=== PATIENT | female | born 1940 | race Caucasian/White ===

== ENCOUNTER 2024-10-12 02:08 | Observation (INO) ==
--- NOTE | 2024-10-12 02:45 | Emergency Department Note ---
Impression & Plan Syncope, Midsternal chest pain, Vomiting Admit to the [facility] ED Provider Note NAME: JANE HUSSEIN AGE: 84 SEX: Female INFORMANT: Patient ED PROVIDER(S): Elmira Shin DO CHIEF COMPLAINT: Syncope, vomiting and chest pressure PLAN: Disposition: Admit to the [facility] MEDICAL DECISION MAKING: this is an 84-year-old female patient who awoke from a nap this evening feeling very nauseated. Enroute to the restroom, she had a syncopal event falling into a closet. She began to vomit there. Patient's found her unresponsive in the closet and called EMS. History from EMS and the patient's daughter was that she had been unresponsive for a prolonged period of time. Upon regaining consciousness, the patient complained of midsternal chest pain. On presentation to the emergency department, the patient describes midsternal chest discomfort and feeling tense, stiff and anxious. Laboratory studies revealed no leukocytosis or anemia. Glucose was normal at 114. Troponin was negative. Lipase was normal. The patient explains that she has been having intermittent episodes of epigastric abdominal pain for some time now for which she is being worked up for. Urinalysis was unremarkable. Patient denies any associated shortness of breath but states she has been having intermittent episodes of dizziness which have been diagnosed as vertigo. Patient went for CT scan of the abdomen/pelvis and chest because of the ongoing complaint of chest discomfort and for the original episode of syncope. There was no evidence of PE or trauma to the chest wall. The CT scan of the abdomen/pelvis was normal. I remain concerned about the patient's prolonged unresponsive episode at the home. I discussed the case with the [facility] and the patient will be evaluated for further inpatient care Care/management discussed with: shelter case manager, patient's daughter who was at the bedside, and the [facility] Triage Nursing notes: reviewed and agree With them. Vital Signs: reviewed and remarkable for hypertension Additional History obtained from: patient's daughter who is at the bedside Chronic Medical/Social Conditions affecting care: over the past 2 months, the patient's had intermittent episodes of dizziness and vomiting thought to be from vertigo Differential Diagnosis: cardiac ischemia, cardiac dysrhythmia, chest trauma from syncope, episode of vertigo, seizure, PE, foodborne illness, viral gastritis, Diagnostics, independently interpreted by me: ECG: normal sinus rhythm at a rate of 72 with a first-degree AV block. There is no ST segment elevation or signs of ischemia. There is no ectopy. Cardiac Monitoring: Normal sinus rhythm at 69 Imaging studies: CT chest: As per [facility] CT scan abdomen/pelvis: As per [facility] HPI: 84 year old Female arrives for evaluation of syncope. Patient awoke from a nap this evening feeling very nauseated. And route to the restroom to vomit, she had a syncopal event falling into a closet. She vomited there and laid unresponsive for some time according to the patient's . He called EMS to their home. Upon EMS arrival, the patient did regain consciousness but complained of chest pressure and persistent nausea. PAST MEDICAL HISTORY: Vertigo, GERD, hypertension, depression/anxiety, hypercholesterolemia SOCIAL HISTORY: [place], does not smoke HOME MEDICATIONS: See list ALLERGIES: None VITALS: See Below PHYSICAL EXAMINATION: HEENT: Head - normocephalic and atraumatic. Pupils are equal, round, and reactive to light. Extraocular eye muscles are intact and sclera are anicteric. Nose - moist nasal mucosa without discharge. Mouth - moist buccal mucosa. Oropharynx is nonerythematous and there is no tonsillar exudate or edema noted. Neck: Supple; no JVD, nuchal rigidity, cervical lymphadenopathy, or auscultated bruits. Heart: Regular rate and rhythm. There is a normal S1 and S2 with no murmurs, clicks, or gallops appreciated. Lungs: Clear to auscultation bilaterally with no wheezes, rales, or rhonchi. Abdomen: Soft, completely nontender, nondistended, with good bowel sounds. There are no palpable pulsatile masses or hepatosplenomegaly. There is no guarding, rigidity, or rebound noted. Extremities: No evidence of cyanosis, clubbing, or edema. There are easily palpable peripheral pulses. Neuro:The patient is awake and alert, oriented to day, time, and place. Muscle strength is 5/5 in all 4 extremities. The patient has equal credit risk manager strength and equal pedal push and pull. There are no cerebellar signs. Emergency department course: The patient was evaluated in room A-2. A complete history and physical was performed. An order was placed for continuous cardiac monitoring. The patient was in a normal sinus rhythm at a rate of 69. A twelve-lead EKG was obtained as described above. Patient went for CT scan of the chest and abdomen/pelvis. I discussed the case with the [facility] Hospitalist and they will evaluate for further inpatient care. Past Med/Surg History Problem List (Updated 10/12/24 @ 16:07 by Elmira Shin DO) Vomiting (Acute) Midsternal chest pain (Acute) Syncope (Acute) Unresponsive episode Social History Smoking Status: Never smoker Hx Alcohol Use: Yes Alcohol type: beer and wine Hx Substance Use: No Preferred Language: Maori Flooring Sales Manager Required: No Beliefs That Will Affect Care: None Current Living Situation: Spouse Other Information That Helps Us Care for You: No Feels Safe at Home: Yes Safety Concerns: Feels Safe At This Time Assistive Devices: CPAP, Glasses and Hearing Aid - Bilateral Allergies Allergies Allergy/AdvReac Type Severity Reaction Status Date / Time No Known Drug Allergies Allergy Verified 08/08/22 13:05 Home Meds Home Medications Medication Instructions Recorded Confirmed aspirin 81 mg tablet,delayed 81 mg PO PM 08/08/22 10/12/24 release memantine 5 mg tablet 5 mg PO QAM 08/08/22 10/12/24 omeprazole 20 mg tablet,delayed 20 mg PO DAILY 08/08/22 10/12/24 release rosuvastatin 5 mg tablet 10 mg PO PM 08/08/22 10/12/24 sertraline 100 mg tablet 100 mg PO DAILY 08/08/22 10/12/24 albuterol sulfate 90 mcg/actuation 1 mcg inhalation 4XD PRN Wheezing 10/12/24 10/12/24 aerosol inhaler amoxicillin 500 mg tablet 500 mg PO BID 10/12/24 10/12/24 furosemide 20 mg tablet 20 mg PO DAILY 10/12/24 10/12/24 losartan 50 mg tablet 50 mg PO DAILY 10/12/24 10/12/24 ropinirole 2 mg tablet 1 mg PO BID 10/12/24 10/12/24 Results & Data (ED) Vital Signs Vital Signs - 24 hr 10/12/24 01:52 10/12/24 01:52 10/12/24 02:14 Temperature Temperature Source Pulse Rate 75 Pulse Rate [Apical] 60 Pulse Rhythm Pulse Strength Respiratory Rate Respiratory Effort / Characteristics Respiratory Depth Blood Pressure Blood Pressure [Left Arm] Blood Pressure Mean Blood Pressure Mean [Left Arm] Blood Pressure Position Pulse Oximetry Oxygen Delivery Method Room Air Sepsis Recent Fever Within 48 Hours Sepsis New/Unexplained Change in Mental Status Sepsis Action Taken by Nursing 10/12/24 02:15 10/12/24 02:43 10/12/24 03:30 Temperature 36.5 C Temperature Source Oral Pulse Rate 69 Pulse Rate [Apical] 65 Pulse Rhythm Regular Pulse Strength Normal Respiratory Rate 18 16 Respiratory Effort / Characteristics Non-Labored Labored Respiratory Depth Normal Blood Pressure 175/103 H Blood Pressure [Left Arm] 138/79 Blood Pressure Mean 127 Blood Pressure Mean [Left Arm] 98 Blood Pressure Position Sitting Pulse Oximetry 98 97 95 Oxygen Delivery Method Room Air Room Air Room Air Sepsis Recent Fever Within 48 Hours No Sepsis New/Unexplained Change in Mental Status No Sepsis Action Taken by Nursing No Action Required 10/12/24 04:30 10/12/24 05:00 10/12/24 06:19 Temperature Temperature Source Pulse Rate 59 L Pulse Rate [Apical] 60 58 L Pulse Rhythm Pulse Strength Respiratory Rate 16 16 Respiratory Effort / Characteristics Respiratory Depth Blood Pressure Blood Pressure [Left Arm] 134/76 130/76 Blood Pressure Mean Blood Pressure Mean [Left Arm] 95 94 Blood Pressure Position Pulse Oximetry 94 97 Oxygen Delivery Method Room Air Room Air Sepsis Recent Fever Within 48 Hours Sepsis New/Unexplained Change in Mental Status Sepsis Action Taken by Nursing Laboratory Data 10/12/24 02:15 10/12/24 02:15 Lab Results 10/12/24 10/12/24 10/12/24 Range/Units 02:15 05:30 06:02 WBC 6.42 (4.8-10.8) K/ul RBC 3.86 L (4.20-5.40) M/uL Hgb 12.1 (12.0-16.0) g/dl Hct 35.3 L (37.0-47.0) % MCV 91.5 (80.0-100.0) fL MCH 31.3 (25.0-34.0) pg MCHC 34.3 (32.0-36.0) g/dL RDW Std Deviation 41.9 (36.4-46.3) fL RDW Coeff of Lida 12.6 (11.5-14.5) % Plt Count 215 (130-400) K/uL MPV 9.8 (9.4-12.4) fL Immature Gran % (Auto) 0.5 % Neut % (Auto) 56.9 % Lymph % (Auto) 28.3 % [place] % (Auto) 11.8 % Eos % (Auto) 2.0 % Baso % (Auto) 0.5 % Neut # (Auto) 3.65 (1.40-6.50) K/uL Lymph # (Auto) 1.82 (1.20-3.40) K/uL [place] # (Auto) 0.76 H (0.11-0.59) K/uL Eos # (Auto) 0.13 (0.00-0.50) K/uL Baso # (Auto) 0.03 (0.00-0.20) K/uL Immature Gran # (Auto) 0.03 (0.01-0.20) K/uL Sodium 134 L (136-145) mmol/L Potassium 3.6 (3.5-5.1) mmol/L Chloride 100 (98-107) mmol/L Carbon Dioxide 28 (21-32) mmol/L Anion Gap 6 (3-11) BUN 18 (6-23) mg/dl Creatinine 0.90 (0.6-1.2) mg/dl Est Cr Clr Drug Dosing 46.9 ml/min eGFR 63.83 BUN/Creatinine Ratio 20.0 (10-20) Glucose 114 H (70-99(Fasting)) mg/dl Calcium 8.6 (8.6-10.3) mg/dl Total Bilirubin 0.4 (0.2-1.0) mg/dl AST 20 (13-39) U/L ALT 17 (7-52) U/L Alkaline Phosphatase 66 (34-104) U/L Troponin I High Sens 5.4 5.5 (0-14) pg/ml Total Protein 6.3 (6.0-8.3) gm/dl Albumin 4.0 (3.4-5.0) gm/dl Globulin 2.3 L (2.5-4.0) gm/dl Albumin/Globulin Ratio 1.7 (0.9-2) Lipase 67 (11-82) U/L Urine Color Yellow Urine Appearance Clear (Clear) Urine pH 7.0 (4.5-7.5) Ur Specific [employer] > 1.045 H (1.000-1.030) Urine Protein Negative (Negative) Urine Glucose (UA) Negative (Negative) Urine Ketones Negative (Negative) Urine Blood Negative (Negative) Urine Nitrite Negative (Negative) Urine Bilirubin Negative (Negative) Urine Urobilinogen Negative (Negative) Ur Leukocyte Esterase Negative (Negative) Administered Medications Doxycycline Hyclate (Doxycycline Hyclate 100 Mg Cap) 100 mg PO BID JOEL Stop: 10/17/24 09:18 Last Admin: 10/12/24 11:19 Dose: 100 mg Documented By: BT Sodium Chloride (Nss) 1,000 mls @ 80 mls/hr IV .[id number] [facility] Stop: 10/13/24 09:18 Last Admin: 10/12/24 10:35 Dose: 80 mls/hr Documented By: BT Ceftriaxone Sodium (Rocephin) 2,000 mg in 50 mls @ 100 mls/hr IV Q24H JOEL Stop: 10/17/24 09:29 Last Infusion: 10/12/24 11:29 Dose: Infused Documented By: Admin: 10/12/24 10:34 Dose: 100 mls/hr Documented By: BT Pantoprazole Sodium (Protonix) 40 mg in 10 mls @ 5 mls/min IV BID [facility] Stop: 11/11/24 12:14 Last Admin: 10/12/24 12:52 Dose: 5 mls/min Documented By: CAMACHO Losartan Potassium (Losartan Potassium 50 Mg Tab) 50 mg PO DAILY JOEL Stop: 11/11/24 09:18 Last Admin: 10/12/24 11:20 Dose: 50 mg Documented By: BT Memantine (Memantine Hcl 5 Mg Tab) 5 mg PO QAM JOEL Stop: 11/11/24 09:18 Last Admin: 10/12/24 11:22 Dose: 5 mg Documented By: BT Ondansetron HCl (Ondansetron Inj 2 Mg/Ml 2 Ml Vial) 4 mg IV Q6H PRN PRN Reason: Nausea Stop: 11/11/24 09:18 Last Admin: 10/12/24 11:57 Dose: 4 mg Documented By: BT Pantoprazole Sodium (Pantoprazole 40 Mg Tab) 40 mg PO DAILY [facility]; Protocol Stop: 12/24/24 09:59 Last Admin: 10/12/24 11:22 Dose: 40 mg Documented By: JUAN Ropinirole HCl (Ropinirole Hcl 1 Mg Tablet) 1 mg PO BID JOEL Stop: 11/11/24 09:18 Last Admin: 10/12/24 11:22 Dose: 1 mg Documented By: BT Sertraline HCl (Sertraline Hcl 100 Mg Tablet) 100 mg PO DAILY JOEL Stop: 11/11/24 09:18 Last Admin: 10/12/24 11:22 Dose: 100 mg Documented By: BT Discontinued Medications Acetaminophen (Ofirmev) 1,000 mg in 100 mls @ 400 mls/hr IV NOW STA Stop: 10/12/24 06:04 Last Infusion: 10/12/24 06:18 Dose: Infused Documented By: Admin: 10/12/24 05:59 Dose: 400 mls/hr Documented By: WILLIS Ioversol (Optiray 320 125ml) 119 ml IV ONCE ONE Stop: 10/12/24 03:28 Last Admin: 10/12/24 03:27 Dose: 119 ml Documented By: SAKINA Imaging Data Radiologist's Impression: Abdomen/Pelvis CT 10/12/24 02:37 EXAM: CT abd pelvis IV con only CLINICAL HISTORY: epigastric pain injected with 119 cc''s optiray 320 TECHNIQUE: Contiguous axial images were obtained from the level of the diaphragm to the pubic symphysis without and with intravenous contrast. Coronal and sagittal reconstructions were likewise performed and indicated to increase the sensitivity for detecting clinically relevant pathology. If IV contrast material had not been administered, the likelihood of detecting abnormalities relevant to the patient's condition would have been substantially decreased. CT scan was performed according to ALARA (as low as reasonable achievable). COMPARISON: None. FINDINGS: The liver is normal in size and attenuation. Simple cyst mean diameter 1.2 cm seen in hepatic segment VII. Portal vein is mildly dilated, measuring up to 1.6 cm at confluence. The gall bladder appears unremarkable. The spleen, pancreas, and adrenal glands are unremarkable. Small sliding hiatus hernia noted. The kidneys are normal in size and attenuation. Subcentimetric simple cyst noted at the interpolar region of right kidney. Redundant sigmoid colon noted. No focal or diffuse bowel wall thickening or evidence of bowel obstruction is identified. Few calcified uterine fibroids noted. Status post bilateral total hip arthroplasty, with implants in situ. Degenerative changes noted in visualized spine. There is spondylolysis at L5 vertebral level with grade 1 anterolisthesis of L4 over L5 vertebra. IMPRESSION: 1. Mildly dilated portal vein at the oz-splenic confluence, measuring 1.6 cm. 2. Simple hepatic and right renal cysts. 3. Small sliding hiatus hernia. Electronically signed by Brad Baxter 10-12-2024 05:02 AM Chest CTA 10/12/24 02:37 EXAM: CT angio chest PE protocol CLINICAL HISTORY: pe vs trauma, syncope, sternal pain, r/o trauma or injury injected with 119 cc''s optiray 320 TECHNIQUE: Contiguous axial images were obtained from the neck base through the upper abdomen following intravenous administration of iodinated contrast material. Angiographic images were processed, 3D MIP images were acquired for interpretation. If IV contrast material had not been administered, the likelihood of detecting abnormalities relevant to the patient's condition would have been substantially decreased. Coronal and sagittal 3-D MIPs were likewise performed and indicated to increase the sensitivity of detecting diffuse clinically relevant pathology. CT scan was performed according to ALARA (as low as reasonable achievable). COMPARISON: None. FINDINGS: Adequate contrast bolus without evidence of pulmonary embolism. Few centrilobular nodules, some showing tree in bud appearance at lateral basal segment of right lower lobe. The central airways are patent. Simple cyst of mean diameter 1.2 cm in medial basal segment of left lower lobe. The heart is of normal size and configuration. Few atherocalcific plaques seen in descending thoracic aorta, without significant luminal narrowing. Small sliding hiatus hernia noted. Simple cyst mean diameter 1.2 cm seen in hepatic segment VII. No mediastinal, hilar, or axillary lymphadenopathy is noted. No suspicious lytic or sclerotic osseous lesions are identified. IMPRESSION: 1. No evidence of pulmonary embolism. 2. Centrilobular nodules in lateral basal segment of right lower lobe with some showing tree-in-bud appearance, likely representing infective etiology. Electronically signed by Brad Baxter 10-12-2024 04:37 AM Discharge Plan Visit Data Chief Complaint: Syncope Stated Complaint: nausea, syncope, unresponsive ED Provider: Elmira Shin Discharge Problem: Syncope, Midsternal chest pain, Vomiting Patient Disposition: Admitted As Inpatient Discharge Instructions Interventions: ED Discharge Assessment Last Done: 10/12/24 07:56
[2024-10-12 02:56] LABS: Basophils # (auto) 0.03 K/uL (0.00-0.20); Basophils % (auto) 0.5 %; Eosinophils # (auto) 0.13 K/uL (0.00-0.50); Hematocrit (blood only) 35.3 % (37.0-47.0); Hemoglobin 12.1 g/dl (12.0-16.0); Immature Granulocytes # (auto) 0.03 K/uL (0.01-0.20); Immature Granulocytes % (auto) 0.5 %; Lymphocytes # (auto) 1.82 K/uL (1.20-3.40); Lymphocytes % (auto) 28.3 %; Mean Corpuscular Hemoglobin 31.3 pg (25.0-34.0); Mean Corpuscular Hgb Conc 34.3 g/dL (32.0-36.0); Mean Corpuscular Volume 91.5 fL (80.0-100.0); Mean Platelet Volume 9.8 fL (9.4-12.4); Monocytes # (auto) 0.76 K/uL (0.11-0.59); Monocytes % (auto) 11.8 %; Neutrophils # (auto) 3.65 K/uL (1.40-6.50); Neutrophils % (auto) 56.9 %; Platelet Count 215 K/uL (130-400); RDW Coefficient of Variation 12.6 % (11.5-14.5); RDW Standard Deviation 41.9 fL (36.4-46.3); Red Blood Count 3.86 M/uL (4.20-5.40); White Blood Count 6.42 K/ul (4.8-10.8)
[2024-10-12 02:57] LABS: Albumin Globulin Ratio 1.7 (0.9-2); Bilirubin,Total 0.4 mg/dl (0.2-1.0); Calcium 8.6 mg/dl (8.6-10.3); Creatinine Clr Calc Pharmacy 46.9 ml/min; Globulin 2.3 gm/dl (2.5-4.0); Potassium 3.6 mmol/L (3.5-5.1); Total Protein 6.3 gm/dl (6.0-8.3)
[2024-10-12 03:24] LABS: Troponin I High Sensitivity 5.4 pg/ml (0-14)
[2024-10-12] MEDS: OPTIRAY 320 125ml IV ONE (03:27)
--- NOTE | 2024-10-12 03:34 | XRay Report ---
EXAM: XR chest 1V portable CLINICAL HISTORY: FALL RT ANTERIOR LOWER RIB PAIN JMF TECHNIQUE: X-ray image of the chest is obtained in AP projection. COMPARISON: No prior studies are available for comparison. FINDINGS: Pulmonary Parenchyma: Bilateral mainly basal increase reticulation with left lower lung zone atlectatic band suggests chronic lung changes. Right lower lung zone pulmonary nodule measures about 5 x 4 mm in diameter. Lungs are clear bilaterally. No evidence of consolidation, collapse, or focal opacities. No evidence of pleural effusion or pleural thickening. Heart and Mediastinum: Heart size and shape are normal. No mediastinal widening or masses. No hilar or mediastinal lymphadenopathy. Right para cardiac fat pad is seen. Bony Thorax: Bony thorax appears intact without fractures or deformities. Soft Tissues: Soft tissues overlying the chest wall are unremarkable. IMPRESSION: 1. Bilateral mainly basal increase interstitial lung markings with left lower lung zone atlectatic band suggesting chronic lung changes. 2. Right lower lung zone small soft tissue pulmonary nodule for follow-up. 3. No evidence of rib fracture, if there is any clinical concern, oblique rib views are recommended. DISCLAIMER:A subtle bone abnormality or fracture may not be readily apparent on x-rays, thus clinical correlation and further imaging including follow up CT, MRI, or follow up x-rays are advised as needed. Electronically signed by Mainor Briggs 10-12-2024 03:33 AM
--- NOTE | 2024-10-12 04:37 | CT Scan Report ---
EXAM: CT angio chest PE protocol CLINICAL HISTORY: pe vs trauma, syncope, sternal pain, r/o trauma or injury injected with 119 cc''s optiray 320 TECHNIQUE: Contiguous axial images were obtained from the neck base through the upper abdomen following intravenous administration of iodinated contrast material. Angiographic images were processed, 3D MIP images were acquired for interpretation. If IV contrast material had not been administered, the likelihood of detecting abnormalities relevant to the patient's condition would have been substantially decreased. Coronal and sagittal 3-D MIPs were likewise performed and indicated to increase the sensitivity of detecting diffuse clinically relevant pathology. CT scan was performed according to ALARA (as low as reasonable achievable). COMPARISON: None. FINDINGS: Adequate contrast bolus without evidence of pulmonary embolism. Few centrilobular nodules, some showing tree in bud appearance at lateral basal segment of right lower lobe. The central airways are patent. Simple cyst of mean diameter 1.2 cm in medial basal segment of left lower lobe. The heart is of normal size and configuration. Few atherocalcific plaques seen in descending thoracic aorta, without significant luminal narrowing. Small sliding hiatus hernia noted. Simple cyst mean diameter 1.2 cm seen in hepatic segment VII. No mediastinal, hilar, or axillary lymphadenopathy is noted. No suspicious lytic or sclerotic osseous lesions are identified. IMPRESSION: 1. No evidence of pulmonary embolism. 2. Centrilobular nodules in lateral basal segment of right lower lobe with some showing tree-in-bud appearance, likely representing infective etiology. Electronically signed by Brad Baxter 10-12-2024 04:37 AM
--- NOTE | 2024-10-12 05:03 | CT Scan Report ---
EXAM: CT abd pelvis IV con only CLINICAL HISTORY: epigastric pain injected with 119 cc''s optiray 320 TECHNIQUE: Contiguous axial images were obtained from the level of the diaphragm to the pubic symphysis without and with intravenous contrast. Coronal and sagittal reconstructions were likewise performed and indicated to increase the sensitivity for detecting clinically relevant pathology. If IV contrast material had not been administered, the likelihood of detecting abnormalities relevant to the patient's condition would have been substantially decreased. CT scan was performed according to ALARA (as low as reasonable achievable). COMPARISON: None. FINDINGS: The liver is normal in size and attenuation. Simple cyst mean diameter 1.2 cm seen in hepatic segment VII. Portal vein is mildly dilated, measuring up to 1.6 cm at confluence. The gall bladder appears unremarkable. The spleen, pancreas, and adrenal glands are unremarkable. Small sliding hiatus hernia noted. The kidneys are normal in size and attenuation. Subcentimetric simple cyst noted at the interpolar region of right kidney. Redundant sigmoid colon noted. No focal or diffuse bowel wall thickening or evidence of bowel obstruction is identified. Few calcified uterine fibroids noted. Status post bilateral total hip arthroplasty, with implants in situ. Degenerative changes noted in visualized spine. There is spondylolysis at L5 vertebral level with grade 1 anterolisthesis of L4 over L5 vertebra. IMPRESSION: 1. Mildly dilated portal vein at the oz-splenic confluence, measuring 1.6 cm. 2. Simple hepatic and right renal cysts. 3. Small sliding hiatus hernia. Electronically signed by Brad Baxter 10-12-2024 05:02 AM
[2024-10-12] MEDS: ACETAMINOPHEN 1,000 MG/100 ML VIAL IV STA (05:59)
[2024-10-12 06:00] LABS: Appearance Urine Clear (Clear); Bilirubin Urine Negative (Negative); Blood Urine Negative (Negative); Color Urine Yellow; Glucose Urine UA Negative (Negative); Ketones Urine Negative (Negative); Leukocyte Esterase Urine Negative (Negative); Nitrite Urine Negative (Negative); Protein Urine Negative (Negative); Specific Gravity Urine > 1.045 (1.000-1.030); Urobilinogen Urine Negative (Negative)
--- NOTE | 2024-10-12 07:10 | CT Scan Report ---
EXAM: CT head/brain wo con CLINICAL HISTORY: fall, syncope, r/o trauma TECHNIQUE: Axial non-contrast CT scan of the brain was performed from the skull base to the high parietal region. One of the following dose reduction techniques was utilized for this exam: Automated exposure control, adjustment of the mA and/or kV according to patient size, and use of iterative reconstruction. COMPARISON: None. FINDINGS: Brain Parenchyma: Multiple subcortical and periventricular white matter hypodensities likely represent chronic microvascular ischemic changes. Normal attenuation of the cerebral hemispheres, cerebellum, and brainstem. No evidence of acute infarct, hemorrhage, or mass effect. No abnormal areas of hyperattenuation. Ventricular System: Capacious ventricular system and CSF spaces, denoting senile brain atrophic changes. No evidence of hydrocephalus. Subarachnoid Spaces: No evidence of subarachnoid hemorrhage or extra-axial fluid collections. Cerebellum and Brainstem: Normal size and attenuation. No masses, lesions, or areas of abnormal attenuation. Orbits: Normal appearance of the globes, optic nerves, and extraocular muscles. No evidence of orbital masses or abnormal attenuation. Sinuses: Clear paranasal sinuses. No evidence of sinusitis or mucosal thickening. Mastoid Air Cells: Clear mastoid air cells. No evidence of mastoiditis. Skull and Meninges: Normal skull morphology. IMPRESSION: 1. No evidence of acute skull vault fracture or acute intracranial hemorrhage. 2. Chronic microvascular ischemic changes. 3. Senile brain atrophic changes. Electronically signed by Mainor Briggs 10-12-2024 07:09 AM
--- NOTE | 2024-10-12 07:46 | History & Physical Report ---
Date of Service October 12, 2024 Assessment & Plan (1) Unresponsive episode: Plan: 84-year-old female with past medical history significant for hypertension, chronic diastolic CHF, restless leg syndrome, depression, hyperlipidemia, GERD, presents with unresponsive episode. As per patient yesterday they had Thanksgiving dinner. She cleaned up her whole house. Daughter visited her. Her daughter left around 7 PM she felt tired and weak and went to sleep. She woke up around midnight and surprised that she slept so long. And she felt very nauseous. And she tried to go to bathroom to vomit. Next thing she remembers laying on the floor in the closet. Seems found her unresponsive in the closet and could not wake her up. As per patient she was unresponsive for a few minutes. EMS was called and brought in here. Prior to the episode she was doing okay. Currently having lot of chest pain and epigastric abdominal pain more with movements. While resting the pain is okay. Has mild headache. She thinks she hit on the right side of the maxillary region of the face. No recent fevers. No cough. Says she is always gets short of breath walking short distances. Appetite is okay. Vision is okay. Somewhat hard of hearing. No diarrhea. Somewhat constipated. Micturating okay.Denies any bowel or bladder incontinence during the episode. No biting of the tongue. Currently resting comfortably and hemodynamically stable. Unresponsive episode Currently alert and oriented Labs okay, UA okay EKG and [address] sets of troponin okay CT head no acute findings Will follow serial cardiac enzymes echo Telemetry Gentle fluids Orthostatics Cardiology consult in a.m. 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 History of Present Illness Chief Complaint: Unresponsive episode Primary Care Provider: Chloe Chase MD 84-year-old female with past medical history significant for hypertension, chronic diastolic CHF, restless leg syndrome, depression, hyperlipidemia, GERD, presents with unresponsive episode. As per patient yesterday they had Thanksgiving dinner. She cleaned up her whole house. Daughter visited her. Her daughter left around 7 PM she felt tired and weak and went to sleep. She woke up around midnight and surprised that she slept so long. And she felt very nauseous. And she tried to go to bathroom to vomit. Next thing she remembers laying on the floor in the closet. Seems found her unresponsive in the closet and could not wake her up. As per patient she was unresponsive for a few minutes. EMS was called and brought in here. Prior to the episode she was doing okay. Currently having lot of chest pain and epigastric abdominal pain more with movements. While resting the pain is okay. Has mild headache. She thinks she hit on the right side of the maxillary region of the face. No recent fevers. No cough. Says she is always gets short of breath walking short distances. Appetite is okay. Vision is okay. Somewhat hard of hearing. No diarrhea. Somewhat constipated. Micturating okay.Denies any bowel or bladder incontinence during the episode. No biting of the tongue. Currently resting comfortably and hemodynamically stable. Past medical history. As mentioned above. 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 Surgeries. Both hips and knee replacements. Colonoscopy. Social history. No smoking. No alcohol. No drug use. Family history. No family history on file Allergies Allergy/AdvReac Type Severity Reaction Status Date / Time No Known Drug Allergies Allergy Verified 08/08/22 13:05 Home Medications Medication Instructions Recorded Confirmed Type aspirin 81 mg tablet,delayed 81 mg PO PM 08/08/22 10/12/24 History release memantine 5 mg tablet 5 mg PO QAM 08/08/22 10/12/24 History omeprazole 20 mg tablet,delayed 20 mg PO DAILY 08/08/22 10/12/24 History release rosuvastatin 5 mg tablet 10 mg PO PM 08/08/22 10/12/24 History sertraline 100 mg tablet 100 mg PO DAILY 08/08/22 10/12/24 History albuterol sulfate 90 mcg/actuation 1 mcg inhalation 4XD PRN Wheezing 10/12/24 10/12/24 History aerosol inhaler amoxicillin 500 mg tablet 500 mg PO BID 10/12/24 10/12/24 History furosemide 20 mg tablet 20 mg PO DAILY 10/12/24 10/12/24 History losartan 50 mg tablet 50 mg PO DAILY 10/12/24 10/12/24 History ropinirole 2 mg tablet 1 mg PO BID 10/12/24 10/12/24 History Past Med/Surg History Problem List (Updated 10/12/24 @ 07:51 by Tarik Costello MD) Unresponsive episode Social History Smoking Status: Never smoker Preferred Language: Singaporean Feels Safe at Home: Yes Review of Systems Review of Systems: All systems reviewed & are unremarkable except as noted in HPI & below Physical Exam Physical Exam: General- Not in distress Head- mild bruise seen on right maxillary region Eyes- PERRL, EOMI. ENT- oropharynx clear Neck- can flex and extend neck, no JVD Lungs- clear to auscultation no wheezing or crackles Heart- regular rate and rhythm; no murmur, no gallop. Abdomen- normal bowel sounds, soft, nontender, no distension. Extremities- no pretibial edema, no erythema seen Neuro- alert, oriented ; PERRL, EOMI; no facial palsy; no dysarthria; can lift up extremities, no pronator drift, co ordination of movements normal, sensations intact Skin- warm & dry Results & Data Results & Data Vital Signs (Past 12 Hours) Vital Signs Temp Pulse Pulse Resp BP BP Pulse Ox 10/12/24 06:19 59 L 10/12/24 05:00 58 L 16 130/76 97 10/12/24 04:30 60 16 134/76 94 10/12/24 03:30 65 16 138/79 95 10/12/24 02:43 97 10/12/24 02:15 36.5 C 69 18 175/103 H 98 10/12/24 02:14 75 10/12/24 01:52 60 10/12/24 01:52 O2 Del Method 10/12/24 06:19 10/12/24 05:00 Room Air 10/12/24 04:30 Room Air 10/12/24 03:30 Room Air 10/12/24 02:43 Room Air 10/12/24 02:15 Room Air 10/12/24 02:14 10/12/24 01:52 10/12/24 01:52 Room Air Diagnostic Findings Laboratory Results WBC 6.42 K/ul (4.8-10.8) 10/12/24 02:15 RBC 3.86 M/uL (4.20-5.40) L 10/12/24 02:15 Hgb 12.1 g/dl (12.0-16.0) 10/12/24 02:15 Hct 35.3 % (37.0-47.0) L 10/12/24 02:15 MCV 91.5 fL (80.0-100.0) 10/12/24 02:15 MCH 31.3 pg (25.0-34.0) 10/12/24 02:15 MCHC 34.3 g/dL (32.0-36.0) 10/12/24 02:15 RDW Std Deviation 41.9 fL (36.4-46.3) 10/12/24 02:15 RDW Coeff of Lida 12.6 % (11.5-14.5) 10/12/24 02:15 Plt Count 215 K/uL (130-400) 10/12/24 02:15 MPV 9.8 fL (9.4-12.4) 10/12/24 02:15 Immature Gran % (Auto) 0.5 % 10/12/24 02:15 Neut % (Auto) 56.9 % 10/12/24 02:15 Lymph % (Auto) 28.3 % 10/12/24 02:15 [place] % (Auto) 11.8 % 10/12/24 02:15 Eos % (Auto) 2.0 % 10/12/24 02:15 Baso % (Auto) 0.5 % 10/12/24 02:15 Neut # (Auto) 3.65 K/uL (1.40-6.50) 10/12/24 02:15 Lymph # (Auto) 1.82 K/uL (1.20-3.40) 10/12/24 02:15 [place] # (Auto) 0.76 K/uL (0.11-0.59) H 10/12/24 02:15 Eos # (Auto) 0.13 K/uL (0.00-0.50) 10/12/24 02:15 Baso # (Auto) 0.03 K/uL (0.00-0.20) 10/12/24 02:15 Immature Gran # (Auto) 0.03 K/uL (0.01-0.20) 10/12/24 02:15 Sodium 134 mmol/L (136-145) L 10/12/24 02:15 Potassium 3.6 mmol/L (3.5-5.1) 10/12/24 02:15 Chloride 100 mmol/L (98-107) 10/12/24 02:15 Carbon Dioxide 28 mmol/L (21-32) 10/12/24 02:15 Anion Gap 6 (3-11) 10/12/24 02:15 BUN 18 mg/dl (6-23) 10/12/24 02:15 Creatinine 0.90 mg/dl (0.6-1.2) 10/12/24 02:15 Est Cr Clr Drug Dosing 46.9 ml/min 10/12/24 02:15 eGFR 63.83 10/12/24 02:15 BUN/Creatinine Ratio 20.0 (10-20) 10/12/24 02:15 Glucose 114 mg/dl (70-99(Fasting)) H 10/12/24 02:15 Calcium 8.6 mg/dl (8.6-10.3) 10/12/24 02:15 Total Bilirubin 0.4 mg/dl (0.2-1.0) 10/12/24 02:15 AST 20 U/L (13-39) 10/12/24 02:15 ALT 17 U/L (7-52) 10/12/24 02:15 Alkaline Phosphatase 66 U/L (34-104) 10/12/24 02:15 Troponin I High Sens 5.5 pg/ml (0-14) 10/12/24 06:02 Total Protein 6.3 gm/dl (6.0-8.3) 10/12/24 02:15 Albumin 4.0 gm/dl (3.4-5.0) 10/12/24 02:15 Globulin 2.3 gm/dl (2.5-4.0) L 10/12/24 02:15 Albumin/Globulin Ratio 1.7 (0.9-2) 10/12/24 02:15 Lipase 67 U/L (11-82) 10/12/24 02:15 Urine Color Yellow 10/12/24 05:30 Urine Appearance Clear (Clear) 10/12/24 05:30 Urine pH 7.0 (4.5-7.5) 10/12/24 05:30 Ur Specific [place] > 1.045 (1.000-1.030) H 10/12/24 05:30 Urine Protein Negative (Negative) 10/12/24 05:30 Urine Glucose (UA) Negative (Negative) 10/12/24 05:30 Urine Ketones Negative (Negative) 10/12/24 05:30 Urine Blood Negative (Negative) 10/12/24 05:30 Urine Nitrite Negative (Negative) 10/12/24 05:30 Urine Bilirubin Negative (Negative) 10/12/24 05:30 Urine Urobilinogen Negative (Negative) 10/12/24 05:30 Ur Leukocyte Esterase Negative (Negative) 10/12/24 05:30 Impressions Abdomen/Pelvis CT 10/12/24 02:37 EXAM: CT abd pelvis IV con only CLINICAL HISTORY: epigastric pain injected with 119 cc''s optiray 320 TECHNIQUE: Contiguous axial images were obtained from the level of the diaphragm to the pubic symphysis without and with intravenous contrast. Coronal and sagittal reconstructions were likewise performed and indicated to increase the sensitivity for detecting clinically relevant pathology. If IV contrast material had not been administered, the likelihood of detecting abnormalities relevant to the patient's condition would have been substantially decreased. CT scan was performed according to ALARA (as low as reasonable achievable). COMPARISON: None. FINDINGS: The liver is normal in size and attenuation. Simple cyst mean diameter 1.2 cm seen in hepatic segment VII. Portal vein is mildly dilated, measuring up to 1.6 cm at confluence. The gall bladder appears unremarkable. The spleen, pancreas, and adrenal glands are unremarkable. Small sliding hiatus hernia noted. The kidneys are normal in size and attenuation. Subcentimetric simple cyst noted at the interpolar region of right kidney. Redundant sigmoid colon noted. No focal or diffuse bowel wall thickening or evidence of bowel obstruction is identified. Few calcified uterine fibroids noted. Status post bilateral total hip arthroplasty, with implants in situ. Degenerative changes noted in visualized spine. There is spondylolysis at L5 vertebral level with grade 1 anterolisthesis of L4 over L5 vertebra. IMPRESSION: 1. Mildly dilated portal vein at the oz-splenic confluence, measuring 1.6 cm. 2. Simple hepatic and right renal cysts. 3. Small sliding hiatus hernia. Electronically signed by Brad Baxter 10-12-2024 05:02 AM Chest CTA 10/12/24 02:37 EXAM: CT angio chest PE protocol CLINICAL HISTORY: pe vs trauma, syncope, sternal pain, r/o trauma or injury injected with 119 cc''s optiray 320 TECHNIQUE: Contiguous axial images were obtained from the neck base through the upper abdomen following intravenous administration of iodinated contrast material. Angiographic images were processed, 3D MIP images were acquired for interpretation. If IV contrast material had not been administered, the likelihood of detecting abnormalities relevant to the patient's condition would have been substantially decreased. Coronal and sagittal 3-D MIPs were likewise performed and indicated to increase the sensitivity of detecting diffuse clinically relevant pathology. CT scan was performed according to ALARA (as low as reasonable achievable). COMPARISON: None. FINDINGS: Adequate contrast bolus without evidence of pulmonary embolism. Few centrilobular nodules, some showing tree in bud appearance at lateral basal segment of right lower lobe. The central airways are patent. Simple cyst of mean diameter 1.2 cm in medial basal segment of left lower lobe. The heart is of normal size and configuration. Few atherocalcific plaques seen in descending thoracic aorta, without significant luminal narrowing. Small sliding hiatus hernia noted. Simple cyst mean diameter 1.2 cm seen in hepatic segment VII. No mediastinal, hilar, or axillary lymphadenopathy is noted. No suspicious lytic or sclerotic osseous lesions are identified. IMPRESSION: 1. No evidence of pulmonary embolism. 2. Centrilobular nodules in lateral basal segment of right lower lobe with some showing tree-in-bud appearance, likely representing infective etiology. Electronically signed by Brad Baxter 10-12-2024 04:37 AM Chest X-Ray 10/12/24 02:37 EXAM: XR chest 1V portable CLINICAL HISTORY: FALL RT ANTERIOR LOWER RIB PAIN JMF TECHNIQUE: X-ray image of the chest is obtained in AP projection. COMPARISON: No prior studies are available for comparison. FINDINGS: Pulmonary Parenchyma: Bilateral mainly basal increase reticulation with left lower lung zone atlectatic band suggests chronic lung changes. Right lower lung zone pulmonary nodule measures about 5 x 4 mm in diameter. Lungs are clear bilaterally. No evidence of consolidation, collapse, or focal opacities. No evidence of pleural effusion or pleural thickening. Heart and Mediastinum: Heart size and shape are normal. No mediastinal widening or masses. No hilar or mediastinal lymphadenopathy. Right para cardiac fat pad is seen. Bony Thorax: Bony thorax appears intact without fractures or deformities. Soft Tissues: Soft tissues overlying the chest wall are unremarkable. IMPRESSION: 1. Bilateral mainly basal increase interstitial lung markings with left lower lung zone atlectatic band suggesting chronic lung changes. 2. Right lower lung zone small soft tissue pulmonary nodule for follow-up. 3. No evidence of rib fracture, if there is any clinical concern, oblique rib views are recommended. DISCLAIMER:A subtle bone abnormality or fracture may not be readily apparent on x-rays, thus clinical correlation and further imaging including follow up CT, MRI, or follow up x-rays are advised as needed. Electronically signed by Mainor Briggs 10-12-2024 03:[address] 10/12/24 06:22 EXAM: CT head/brain wo con CLINICAL HISTORY: fall, syncope, r/o trauma TECHNIQUE: Axial non-contrast CT scan of the brain was performed from the skull base to the high parietal region. One of the following dose reduction techniques was utilized for this exam: Automated exposure control, adjustment of the mA and/or kV according to patient size, and use of iterative reconstruction. COMPARISON: None. FINDINGS: Brain Parenchyma: Multiple subcortical and periventricular white matter hypodensities likely represent chronic microvascular ischemic changes. Normal attenuation of the cerebral hemispheres, cerebellum, and brainstem. No evidence of acute infarct, hemorrhage, or mass effect. No abnormal areas of hyperattenuation. Ventricular System: Capacious ventricular system and CSF spaces, denoting senile brain atrophic changes. No evidence of hydrocephalus. Subarachnoid Spaces: No evidence of subarachnoid hemorrhage or extra-axial fluid collections. Cerebellum and Brainstem: Normal size and attenuation. No masses, lesions, or areas of abnormal attenuation. Orbits: Normal appearance of the globes, optic nerves, and extraocular muscles. No evidence of orbital masses or abnormal attenuation. Sinuses: Clear paranasal sinuses. No evidence of sinusitis or mucosal thickening. Mastoid Air Cells: Clear mastoid air cells. No evidence of mastoiditis. Skull and Meninges: Normal skull morphology. IMPRESSION: 1. No evidence of acute skull vault fracture or acute intracranial hemorrhage. 2. Chronic microvascular ischemic changes. 3. Senile brain atrophic changes. Electronically signed by Mainor Briggs 10-12-2024 07:09 AM ECG Additional Comments: ECG. Sinus rhythm with first-degree AV block rate of 72. Nonspecific ST and T wave abnormality. QTc 483 Code Status & VTE Plan VTE Prophylaxis Plan VTE Prophylaxis will be ordered: Yes
[2024-10-12] MEDS ORDERED: ALBUTEROL HFA 8 GM INHALER INH PRN (09:19)
[2024-10-12] MEDS ORDERED: NITROGLYCERIN SL 0.4 MG/TAB TAB SL PRN (09:19)
[2024-10-12] MEDS: cefTRIAXone SODIUM 2,000 MG/50 ML BAG IV SCH (10:34)
[2024-10-12] MEDS: SODIUM CHLORIDE 0.9% 1,000 ML IV SCH (10:35)
[2024-10-12] MEDS: DOXYCYCLINE HYCLATE 100 MG CAP PO SCH (11:19)
[2024-10-12] MEDS: LOSARTAN POTASSIUM 50 MG TAB PO SCH (11:20)
[2024-10-12] MEDS: rOPINIRole HCL 1 MG TABLET PO SCH (11:22)
[2024-10-12] MEDS: PANTOprazole 40 MG TAB PO SCH (11:22)
[2024-10-12] MEDS: SERTRALINE HCL 100 MG TABLET PO SCH (11:22)
[2024-10-12] MEDS: MEMANTINE HCL 5 MG TAB PO SCH (11:22)
[2024-10-12] MEDS: ONDANSETRON INJ 2 MG/ML 2 ML VIAL IV PRN (11:57)
--- NOTE | 2024-10-12 12:01 | Cardiology Consultation ---
Date of Consultation October 12, 2024 Assessment & Plan (1) Unresponsive episode: Patient with reproducible chest wall pain on exam. Although she was reportedly hypotensive on the arrival of EMS, blood pressure has been high in the hospital, with initial reading of 175/103 when she arrived, most recent measurement 168/89. She is not on any AV troy blockers as an outpatient. Outpatient medications include losartan 50 mg daily and furosemide 20 mg daily. Question if episode was vasovagal in etiology. An echocardiogram has been completed and will be reviewed. Otherwise would recommend ongoing observation on telemetry and a 2-week Zio patch monitor to be performed at discharge. History of Present Illness Attending Physician: Benny Lawton MD History of Present Illness Maya Hanson is an 84 year old female seen in cardiology consultation per the request of Dr Costello for syncope / unresponsive episode. Patient known to the undersigned as I follow her as an outpatient for her history of hypertension and diastolic dysfunction. He also has a history of mild dementia. History obtained by chart review, interview with patient and interview with patient's daughter, Pamela Aguilar, and patient's , Nahun, who is a retired physical therapist. Patient has apparently complained of intermittent nauseousness for the last 4 to 6 weeks. Yesterday she was feeling nauseous and she was attempting to walk to the bathroom, she was found however having collapsed in the closet which was adjacent to the bathroom with a momentary episode of unresponsiveness when her came to her aid. He called EMS and reportedly her heart rate was in the 30s and her systolic blood pressure was in the 80s on arrival of EMS. The patient has no additional recollection. Allergies Allergy/AdvReac Type Severity Reaction Status Date / Time No Known Drug Allergies Allergy Verified 08/08/22 13:05 Home Medications Medication Instructions Recorded Confirmed Type aspirin 81 mg tablet,delayed 81 mg PO PM 08/08/22 10/12/24 History release memantine 5 mg tablet 5 mg PO QAM 08/08/22 10/12/24 History omeprazole 20 mg tablet,delayed 20 mg PO DAILY 08/08/22 10/12/24 History release rosuvastatin 5 mg tablet 10 mg PO PM 08/08/22 10/12/24 History sertraline 100 mg tablet 100 mg PO DAILY 08/08/22 10/12/24 History albuterol sulfate 90 mcg/actuation 1 mcg inhalation 4XD PRN Wheezing 10/12/24 10/12/24 History aerosol inhaler amoxicillin 500 mg tablet 500 mg PO BID 10/12/24 10/12/24 History furosemide 20 mg tablet 20 mg PO DAILY 10/12/24 10/12/24 History losartan 50 mg tablet 50 mg PO DAILY 10/12/24 10/12/24 History ropinirole 2 mg tablet 1 mg PO BID 10/12/24 10/12/24 History Patient History Social History Smoking Status: Never smoker Hx Alcohol Use: Yes Alcohol type: beer and wine Hx Substance Use: No Preferred Language: Croatian Risk Control Manager Required: No Beliefs That Will Affect Care: None Current Living Situation: Spouse Other Information That Helps Us Care for You: No Feels Safe at Home: Yes Safety Concerns: Feels Safe At This Time Assistive Devices: CPAP, Glasses and Hearing Aid - Bilateral Review of Systems Review of Systems: All systems reviewed & are unremarkable except as noted in HPI & below Physical Exam Physical Exam: General: no acute distress and stated age Eyes: conjunctiva are pink and non-injected, sclera clear Neck: normal jugular venous pulse, no hepatojugular reflux Chest: normal shape and normal respiratory effort Lungs: clear to auscultation and percussion Cardiac Exam: - regular heart sounds, no murmurs, rubs, or gallops, no jugular venous distention Abdomen: abdomen soft, non-tender, no abnormal masses and no hepatosplenomegaly Musculoskeletal: no gait disturbance, no weakness Extremities: no edema and no cyanosis Neuro:awake, conversant, follows commands, no focal motor deficits Results & Data Vital Signs (Past 12 Hours) Vital Signs Temp Pulse Pulse Resp BP BP Pulse Ox 10/12/24 08:30 63 10/12/24 08:30 36.8 C 63 18 158/95 H 98 10/12/24 07:56 68 17 137/83 98 10/12/24 07:00 61 17 139/78 95 10/12/24 06:19 59 L 10/12/24 05:00 58 L 16 130/76 97 10/12/24 04:30 60 16 134/76 94 10/12/24 03:30 65 16 138/79 95 10/12/24 02:43 97 10/12/24 02:15 36.5 C 69 18 175/103 H 98 10/12/24 02:14 75 10/12/24 01:52 60 10/12/24 01:52 O2 Del Method 10/12/24 08:30 10/12/24 08:30 Room Air 10/12/24 07:56 Room Air 10/12/24 07:00 Room Air 10/12/24 06:19 10/12/24 05:00 Room Air 10/12/24 04:30 Room Air 10/12/24 03:30 Room Air 10/12/24 02:43 Room Air 10/12/24 02:15 Room Air 10/12/24 02:14 10/12/24 01:52 10/12/24 01:52 Room Air Laboratory Results Cardiac Enzymes 10/12/24 10/12/24 10/12/24 Range/Units 02:15 06:02 10:45 AST 20 (13-39) U/L Troponin I High Sens 5.4 5.5 5.2 (0-14) pg/ml CBC 10/12/24 Range/Units 02:15 WBC 6.42 (4.8-10.8) K/ul RBC 3.86 L (4.20-5.40) M/uL Hgb 12.1 (12.0-16.0) g/dl Hct 35.3 L (37.0-47.0) % Plt Count 215 (130-400) K/uL Neut # (Auto) 3.65 (1.40-6.50) K/uL Lymph # (Auto) 1.82 (1.20-3.40) K/uL [place] # (Auto) 0.76 H (0.11-0.59) K/uL Eos # (Auto) 0.13 (0.00-0.50) K/uL Baso # (Auto) 0.03 (0.00-0.20) K/uL Comprehensive Metabolic Panel 10/12/24 Range/Units 02:15 Sodium 134 L (136-145) mmol/L Potassium 3.6 (3.5-5.1) mmol/L Chloride 100 (98-107) mmol/L Carbon Dioxide 28 (21-32) mmol/L BUN 18 (6-23) mg/dl Creatinine 0.90 (0.6-1.2) mg/dl Glucose 114 H (70-99(Fasting)) mg/dl Calcium 8.6 (8.6-10.3) mg/dl AST 20 (13-39) U/L ALT 17 (7-52) U/L Alkaline Phosphatase 66 (34-104) U/L Total Protein 6.3 (6.0-8.3) gm/dl Albumin 4.0 (3.4-5.0) gm/dl Intake and Output 10/11/24 10/12/24 10/12/24 22:59 06:59 14:59 Intake Total 100 / 100 50 / 50 Balance 100 / 100 50 / 50 Intake: IV 100 / 100 50 / 50 Acetaminophen 1,000 mg In 100 100 / 100 ml @ 400 mls/hr IV NOW STA Rx#: [id number] cefTRIAXone SODIUM 2,000 mg In 50 / 50 50 ml @ 100 mls/hr IV Q24H [facility] Rx#:[id number] Other: Weight 82.3 kg 82.3 kg Weight Measurement Method Built in [facility] Patient Weight 10/13/24 06:59 Weight 82.3 kg Diagnostic Findings Nuclear stress test performed 06/27/2022 as an outpatient was negative for ischemia, LVEF 60% by the gated SPECT technique at that time. EKG performed 10/12/2024 at 2:16 AM and interpret independently: Sinus rhythm at 72 bpm with first-degree AV block, IL interval 252 ms, otherwise normal EKG Telemetry thus far has revealed sinus rhythm in the 50s to 60s without abnormality
[2024-10-12] MEDS: PANTOprazole 40 MG/10 ML SYR IV SCH (12:52)
--- NOTE | 2024-10-12 17:08 | Gastrointestinal Consultation ---
Date of Consultation October 12, 2024 Assessment & Plan (1) Nausea and vomiting: Chronic nausea and vomiting associated with poorly defined epigastric discomfort. Differential diagnosis: Medication induced (ropinirole) versus organic etiology like gastritis peptic ulcer disease or malignancy. Discussed with patient's and daughter. Will try to schedule EGD tomorrow or October 14. If the procedure cannot be done tomorrow the daughter will arrange for an outpatient endoscopy with patient's [facility] driller and reamer. History of Present Illness Reason for Consultation: Nausea, vomiting, epigastric pain. Attending Physician: Benny Lawton MD History of Present Illness The patient was admitted because of syncope. Gastroenterology consultation was requested because of several weeks of nausea, epigastric fullness and intermittent vomiting. The patient sustained a syncopal episode after she became nauseated and attempted to go to the bathroom. She lost consciousness and her called for the ambulance. Per EMS reportedly her heart rate was in the 30s and her systolic blood pressure was in the 80s on arrival of EMS. Suspected vasovagal syncope as per employment evaluator/case manager. Her heart rate and is back to 70 and blood pressure to 123/75. Complains of epigastric discomfort and nausea which occurs every day. Complains of occasional vomiting. Denies heartburn, dysphagia. No prior endoscopy. The patient is under care of driller and reamer at [facility]. Recently started on omeprazole 20 mg and Tums without improvement. Denies diarrhea but complains of constipation. The most recent colonoscopy was about 10 years ago. No recent weight loss. CT scan of the chest abdomen and pelvis showed no significant abnormalities to explain patient's symptoms. Lab data are unremarkable. Allergies Allergy/AdvReac Type Severity Reaction Status Date / Time No Known Drug Allergies Allergy Verified 08/08/22 13:05 Home Medications Medication Instructions Recorded Confirmed Type aspirin 81 mg tablet,delayed 81 mg PO PM 08/08/22 10/12/24 History release memantine 5 mg tablet 5 mg PO QAM 08/08/22 10/12/24 History omeprazole 20 mg tablet,delayed 20 mg PO DAILY 08/08/22 10/12/24 History release rosuvastatin 5 mg tablet 10 mg PO PM 08/08/22 10/12/24 History sertraline 100 mg tablet 100 mg PO DAILY 08/08/22 10/12/24 History albuterol sulfate 90 mcg/actuation 1 mcg inhalation 4XD PRN Wheezing 10/12/24 10/12/24 History aerosol inhaler amoxicillin 500 mg tablet 500 mg PO BID 10/12/24 10/12/24 History furosemide 20 mg tablet 20 mg PO DAILY 10/12/24 10/12/24 History losartan 50 mg tablet 50 mg PO DAILY 10/12/24 10/12/24 History ropinirole 2 mg tablet 1 mg PO BID 10/12/24 10/12/24 History Patient History Social History Smoking Status: Never smoker Hx Alcohol Use: Yes Alcohol type: beer and wine Hx Substance Use: No Preferred Language: [employer] Required: No Beliefs That Will Affect Care: None Current Living Situation: Spouse Other Information That Helps Us Care for You: No Feels Safe at Home: Yes Safety Concerns: Feels Safe At This Time Assistive Devices: CPAP, Glasses and Hearing Aid - Bilateral Review of Systems Review of Systems: Constitutional: Denies weight loss, chills, fever, fatigue. Respiratory: Denies cough, denies shortness of breath. Cardiovascular: Complains of chest tenderness. Denies palpitations. Gastrointestinal: As per history of present illness. Physical Exam Physical Exam: Constitutional: WD/WN, vitals as above Respiratory: normal respiratory effort, lungs clear to auscultation. Chest: Point tenderness over the lower part of the sternum. Cardiovascular: RRR, no murmur, no edema Gastrointestinal (Abdomen): normal bowel sounds, soft, nontender, no hepatosplenomegaly. Neurological: Oriented x 3, grossly no focal abnormalities, speech is intact. Results & Data Vital Signs (Past 12 Hours) Vital Signs Temp Pulse Pulse Resp BP BP Pulse Ox 10/12/24 15:12 37.1 C 70 18 123/75 94 10/12/24 14:17 68 10/12/24 11:59 36.3 C L 65 18 168/89 H 94 10/12/24 08:30 63 10/12/24 08:30 36.8 C 63 18 158/95 H 98 10/12/24 08:00 10/12/24 07:56 68 17 137/83 98 10/12/24 07:00 61 17 139/78 95 10/12/24 06:19 59 L O2 Del Method O2 Flow Rate 10/12/24 15:12 Room Air 10/12/24 14:17 10/12/24 11:59 Room Air 10/12/24 08:30 10/12/24 08:30 Room Air 10/12/24 08:00 Nasal Cannula 2 10/12/24 07:56 Room Air 10/12/24 07:00 Room Air 10/12/24 06:19 PG Care Time/CCT Total # of Minutes Spent Total Time Spent with Patient: Total time spent is greater than 50% in coordination of care (as documented) at patient's floor/unit and/or counseling patient: Coding Level of Care Code 67408 INT INP/OBS CARE 2/55MIN Diagnoses Nausea and vomiting R11.2
[2024-10-12] MEDS: bisacodyL 5 MG TABEC PO STA (17:17)
[2024-10-12] MEDS: NON-FORMULARY MEDICATION (Amoxicillin 500 mg tablet) PO SCH (19:10)
[2024-10-12] MEDS: ACETAMINOPHEN 325 MG TAB PO PRN (19:52)
[2024-10-12] MEDS: ROSUVASTATIN CALCIUM 10 MG TAB PO SCH (19:55)
[2024-10-12] MEDS: ASPIRIN 81 MG ECTAB PO SCH (19:56)
[2024-10-12] MEDS: hydrALAZINE HCL 20 MG/ML VIAL IV ONE (21:50)
[2024-10-12] MEDS: KETOROLAC TROMETHAMINE 15 MG/ML VIAL IV ONE (21:52)
[2024-10-12] MEDS: PROMETHAZINE 6.25 MG/50.25 ML BAG IV PRN (21:54)
[2024-10-13 06:32] LABS: Hematocrit (blood only) 36.4 % (37.0-47.0); Hemoglobin 12.5 g/dl (12.0-16.0); Mean Corpuscular Hgb Conc 34.3 g/dL (32.0-36.0); Mean Corpuscular Volume 90.3 fL (80.0-100.0); Mean Platelet Volume 9.8 fL (9.4-12.4); Platelet Count 212 K/uL (130-400); RDW Coefficient of Variation 12.7 % (11.5-14.5); RDW Standard Deviation 42.3 fL (36.4-46.3); Red Blood Count 4.03 M/uL (4.20-5.40)
[2024-10-13 06:50] LABS: BUN Creatinine Ratio 12.3 (10-20); Calcium 8.8 mg/dl (8.6-10.3); Creatinine Clr Calc Pharmacy 57.8 ml/min; Magnesium 1.9 mg/dl (1.7-2.4); Phosphorus 2.7 mg/dl (2.5-4.9); Potassium 3.5 mmol/L (3.5-5.1)
[2024-10-13 07:08] VITALS: PULSE 65
--- NOTE | 2024-10-13 07:17 | Hospitalist Progress Note ---
Date of Service October 13, 2024 Assessment & Plan (1) Unresponsive episode: Plan: 84-year-old female with past medical history significant for hypertension, chronic diastolic CHF, restless leg syndrome, depression, hyperlipidemia, GERD, presents with unresponsive episode. As per patient yesterday they had Thanksgiving dinner. She cleaned up her whole house. Daughter visited her. Her daughter left around 7 PM she felt tired and weak and went to sleep. She woke up around midnight and surprised that she slept so long. And she felt very nauseous. And she tried to go to bathroom to vomit. Next thing she remembers laying on the floor in the closet. Seems found her unresponsive in the closet and could not wake her up. As per patient she was unresponsive for a few minutes. EMS was called and brought in here. Prior to the episode she was doing okay. Currently having lot of chest pain and epigastric abdominal pain more with movements. While resting the pain is okay. Has mild headache. She thinks she hit on the right side of the maxillary region of the face. No recent fevers. No cough. Says she is always gets short of breath walking short distances. Appetite is okay. Vision is okay. Somewhat hard of hearing. No diarrhea. Somewhat constipated. Micturating okay.Denies any bowel or bladder incontinence during the episode. No biting of the tongue. Currently resting comfortably and hemodynamically stable. Unresponsive episode Currently alert and oriented Labs unremarkable, UA negative EKG and 2 sets of troponin okay CT head no acute findings obtained serial cardiac enzymes and obtained echo Telemetry Gentle fluids Orthostatics Cardiology consulted for further recommendations - Patient with reproducible chest wall pain on exam. Although she was reportedly hypotensive on the arrival of EMS, blood pressure has been high in the hospital, with initial reading of 175/103 when she arrived, most recent measurement 168/89. She is not on any AV troy blockers as an outpatient. Outpatient medications include losartan 50 mg daily and furosemide 20 mg daily. Question if episode was vasovagal in etiology. Recommend a 2-week Zio patch monitor to be performed at discharge. Close monitor Possible pneumonia on CAT scan Empiric Rocephin and Doxy -> switch to PO abx on DC Monitor Chest pain and abdominal pain More with movements Mostly musculoskeletal CTA chest unremarkable except for possible pneumonia CT and abdomen pelvis unremarkable except for mildly dilated portal vein Nausea, vomiting, epigastric pain - ongoing for 1-2 months - started IV PPI, pt seems improved - Consulted GI - discussing need for EGD either inpt or outpt - they would prefer to be discharged and have EGD done as outpt w/ [facility]. 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 as per patient Chronic diastolic CHF Getting gentle fluids History of lower EXTR edema Holding Lasix Monitor for volume overload Hypertension On losartan Holding furosemide Will monitor Restless leg syndrome On ropinirole GERD Omeprazole Hyperlipidemia On statin and aspirin Admission and Anticipated Discharge Date Admission Date: October 12, 2024 Subjective Pt seen in follow up of unresponsive episode after having n/v Pt reports n/v for about 1-2 months, + epigastric tenderness Pt seen by cardiology - most likely vasovagal episode GI also consulted -plan for EGD inpt or outpt Discussed w/ pt and her family including her SHAYY Dr. Higgins - they would prefer to be discharged and have EGD done as outpt w/ [facility]. Pt is feeling well, denies any dizziness, lightheadedness, shortness of breath. She has chest pain with movements and with deep breath (after her fall) but not at rest. Abdominal pain also improved. Review of Systems Review of Systems: All systems reviewed & are unremarkable except as noted in Subjective Physical Exam Physical Exam: General- elderly obese F in NAD Head- mild bruise seen on right maxillary region Eyes- PERRL, EOMI. Neck- supple Lungs- clear to auscultation no wheezing or crackles Heart- regular rate and rhythm; no murmur, no gallop. Abdomen- normal bowel sounds, soft, nontender, no distension. Extremities- no pretibial edema, no erythema seen Neuro- alert, oriented ; PERRL, EOMI; no facial palsy; no dysarthria; moves extremities Skin- warm & dry Results & Data Results & Data Vital Signs (Past 12 Hours) Vital Signs Temp Pulse Pulse Resp BP Pulse Ox O2 Del Method 10/13/24 07:07 65 10/13/24 03:18 36.8 C 88 19 162/64 H 98 Room Air 10/12/24 23:47 70 10/12/24 23:17 76 18 158/90 H 93 Room Air 10/12/24 22:10 71 155/94 H 10/12/24 21:50 90 192/119 H 10/12/24 20:35 36.7 C 70 18 161/94 H 96 Room Air Laboratory Results 10/13/24 10/12/24 10/12/24 Range/Units 05:59 16:11 10:45 WBC 5.50 (4.8-10.8) K/ul RBC 4.03 L (4.20-5.40) M/uL Hgb 12.5 (12.0-16.0) g/dl Hct 36.4 L (37.0-47.0) % MCV 90.3 (80.0-100.0) fL MCH 31.0 (25.0-34.0) pg MCHC 34.3 (32.0-36.0) g/dL RDW Std Deviation 42.3 (36.4-46.3) fL RDW Coeff of Lida 12.7 (11.5-14.5) % Plt Count 212 (130-400) K/uL MPV 9.8 (9.4-12.4) fL Sodium 136 (136-145) mmol/L Potassium 3.5 (3.5-5.1) mmol/L Chloride 101 (98-107) mmol/L Carbon Dioxide 29 (21-32) mmol/L Anion Gap 6 (3-11) BUN 9 (6-23) mg/dl Creatinine 0.73 (0.6-1.2) mg/dl Est Cr Clr Drug Dosing 57.8 ml/min eGFR 82.06 BUN/Creatinine Ratio 12.3 (10-20) Glucose 107 H (70-99(Fasting)) mg/dl Calcium 8.8 (8.6-10.3) mg/dl Phosphorus 2.7 (2.5-4.9) mg/dl Magnesium 1.9 (1.7-2.4) mg/dl Troponin I High Sens 6.2 5.2 (0-14) pg/ml Medications Administered Current Inpatient Medications Acetaminophen (Acetaminophen 325 Mg Tab) 650 mg PO Q4H PRN PRN Reason: Pain or Fever Stop: 11/11/24 09:18 Last Admin: 10/13/24 06:21 Dose: 650 mg Albuterol (Albuterol Hfa 8 Gm Inhaler) 1 puffs INH Q6H PRN PRN Reason: Wheezing Stop: 11/11/24 09:18 Aspirin (Aspirin 81 Mg Ectab) 81 mg PO PM JOEL Stop: 11/11/24 20:59 Last Admin: 10/12/24 19:56 Dose: 81 mg Doxycycline Hyclate (Doxycycline Hyclate 100 Mg Cap) 100 mg PO BID [facility] Stop: 10/17/24 09:18 Last Admin: 10/12/24 19:55 Dose: 100 mg Sodium Chloride (Nss) 1,000 mls @ 80 mls/hr IV .[id number] JOEL Stop: 10/13/24 09:18 Last Admin: 10/12/24 22:40 Dose: 80 mls/hr Ceftriaxone Sodium (Rocephin) 2,000 mg in 50 mls @ 100 mls/hr IV Q24H JOEL Stop: 10/17/24 09:29 Last Infusion: 10/12/24 11:29 Dose: Infused Pantoprazole Sodium (Protonix) 40 mg in 10 mls @ 5 mls/min IV BID [facility] Stop: 11/11/24 12:14 Last Admin: 10/12/24 19:56 Dose: 5 mls/min Promethazine HCl (Phenergan) 6.25 mg in 50.25 mls @ 201 mls/hr IV Q6H PRN PRN Reason: Nausea And Vomiting Stop: 11/11/24 12:04 Last Infusion: 10/12/24 22:12 Dose: Infused Losartan Potassium (Losartan Potassium 50 Mg Tab) 50 mg PO DAILY [facility] Stop: 11/11/24 09:18 Last Admin: 10/12/24 11:20 Dose: 50 mg Memantine (Memantine Hcl 5 Mg Tab) 5 mg PO QAM JOEL Stop: 11/11/24 09:18 Last Admin: 10/12/24 11:22 Dose: 5 mg Nitroglycerin (Nitroglycerin Sl 0.4 Mg/Tab Tab) 0.4 mg SL Q5M PRN PRN Reason: Chest Pain Stop: 11/11/24 09:18 Ondansetron HCl (Ondansetron Inj 2 Mg/Ml 2 Ml Vial) 4 mg IV Q6H PRN PRN Reason: Nausea Stop: 11/11/24 09:18 Last Admin: 10/12/24 11:57 Dose: 4 mg Pantoprazole Sodium (Pantoprazole 40 Mg Tab) 40 mg PO DAILY JOEL; Protocol Stop: 11/11/24 09:59 Last Admin: 10/12/24 11:22 Dose: 40 mg Ropinirole HCl (Ropinirole Hcl 1 Mg Tablet) 1 mg PO BID JOEL Stop: 11/11/24 09:18 Last Admin: 10/12/24 19:55 Dose: 1 mg Rosuvastatin Calcium (Rosuvastatin Calcium 10 Mg Tab) 10 mg PO PM JOEL Stop: 11/11/24 20:59 Last Admin: 10/12/24 19:55 Dose: 10 mg Sertraline HCl (Sertraline Hcl 100 Mg Tablet) 100 mg PO DAILY JOEL Stop: 11/11/24 09:18 Last Admin: 10/12/24 11:22 Dose: 100 mg
[2024-10-13 08:08] VITALS: BP 159/88; RESP 18; TEMP 98.4; O2SAT 95
--- NOTE | 2024-10-13 08:13 | Cardiology Progress Note ---
Date of Service October 13, 2024 Assessment & Plan Plan 84 yo woman presents with chest pain * Reproducible chest wall pain on exam. * Although she was reportedly hypotensive on the arrival of EMS, blood pressure has been high in the hospital, with initial reading of 175/103 when she arrived * Losartan 50 mg daily * Furosemide 20 mg daily. * ECHO * 2-week Zio patch monitor to be performed at discharge Admission and Anticipated Discharge Date Admission Date: October 12, 2024 Subjective Events Overnight: Subjective: Review of Systems Review of Systems: All systems reviewed & are unremarkable except as noted in HPI & below Results & Data Vital Signs (Past 12 Hours) Vital Signs Temp Pulse Pulse Resp BP Pulse Ox O2 Del Method 10/13/24 08:07 36.9 C 65 18 159/88 H 95 Room Air 10/13/24 07:07 65 10/13/24 03:18 36.8 C 88 19 162/64 H 98 Room Air 10/12/24 23:47 70 10/12/24 23:17 76 18 158/90 H 93 Room Air 10/12/24 22:10 71 155/94 H 10/12/24 21:50 90 192/119 H 10/12/24 20:35 36.7 C 70 18 161/94 H 96 Room Air Laboratory Results Cardiac Enzymes 10/12/24 10/12/24 Range/Units 10:45 16:11 Troponin I High Sens 5.2 6.2 (0-14) pg/ml CBC 10/13/24 Range/Units 05:59 WBC 5.50 (4.8-10.8) K/ul RBC 4.03 L (4.20-5.40) M/uL Hgb 12.5 (12.0-16.0) g/dl Hct 36.4 L (37.0-47.0) % Plt Count 212 (130-400) K/uL Comprehensive Metabolic Panel 10/13/24 Range/Units 05:59 Sodium 136 (136-145) mmol/L Potassium 3.5 (3.5-5.1) mmol/L Chloride 101 (98-107) mmol/L Carbon Dioxide 29 (21-32) mmol/L BUN 9 (6-23) mg/dl Creatinine 0.73 (0.6-1.2) mg/dl Glucose 107 H (70-99(Fasting)) mg/dl Calcium 8.8 (8.6-10.3) mg/dl Intake and Output 10/12/24 10/13/24 10/13/24 22:59 06:59 14:59 Intake Total 1016.917 / 1366.917 Output Total Balance 1016.917 / 1365.917 - / 1365.917 Intake: IV 1016.917 / 1066.917 Promethazine 6.25 mg In 50.25 50.25 / 50.25 ml @ 201 mls/hr IV Q6H PRN Rx#: [id number] Sodium Chloride 0.9% 1,000 ml @ 966.667 / 966.667 80 mls/hr IV .[id number] [facility] Rx#: [id number] Output: Urine Other: # Unmeasured Voids 1 Weight 82.3 kg Weight Measurement [facility] Medications Administered Current Inpatient Medications Acetaminophen (Acetaminophen 325 Mg Tab) 650 mg PO Q4H PRN PRN Reason: Pain or Fever Stop: 11/11/24 09:18 Last Admin: 10/13/24 06:21 Dose: 650 mg Albuterol (Albuterol Hfa 8 Gm Inhaler) 1 puffs INH Q6H PRN PRN Reason: Wheezing Stop: 11/11/24 09:18 Aspirin (Aspirin 81 Mg Ectab) 81 mg PO PM JOEL Stop: 11/11/24 20:59 Last Admin: 10/12/24 19:56 Dose: 81 mg Doxycycline Hyclate (Doxycycline Hyclate 100 Mg Cap) 100 mg PO BID JOEL Stop: 10/17/24 09:18 Last Admin: 10/12/24 19:55 Dose: 100 mg Sodium Chloride (Nss) 1,000 mls @ 80 mls/hr IV .[id number] JOEL Stop: 10/13/24 09:18 Last Admin: 10/12/24 22:40 Dose: 80 mls/hr Ceftriaxone Sodium (Rocephin) 2,000 mg in 50 mls @ 100 mls/hr IV Q24H JOEL Stop: 10/17/24 09:29 Last Infusion: 10/12/24 11:29 Dose: Infused Pantoprazole Sodium (Protonix) 40 mg in 10 mls @ 5 mls/min IV BID JOEL Stop: 11/11/24 12:14 Last Admin: 10/12/24 19:56 Dose: 5 mls/min Promethazine HCl (Phenergan) 6.25 mg in 50.25 mls @ 201 mls/hr IV Q6H PRN PRN Reason: Nausea And Vomiting Stop: 11/11/24 12:04 Last Infusion: 10/12/24 22:12 Dose: Infused Losartan Potassium (Losartan Potassium 50 Mg Tab) 50 mg PO DAILY JOEL Stop: 11/11/24 09:18 Last Admin: 10/12/24 11:20 Dose: 50 mg Memantine (Memantine Hcl 5 Mg Tab) 5 mg PO QAM JOEL Stop: 11/11/24 09:18 Last Admin: 10/12/24 11:22 Dose: 5 mg Nitroglycerin (Nitroglycerin Sl 0.4 Mg/Tab Tab) 0.4 mg SL Q5M PRN PRN Reason: Chest Pain Stop: 11/11/24 09:18 Ondansetron HCl (Ondansetron Inj 2 Mg/Ml 2 Ml Vial) 4 mg IV Q6H PRN PRN Reason: Nausea Stop: 11/11/24 09:18 Last Admin: 10/12/24 11:57 Dose: 4 mg Pantoprazole Sodium (Pantoprazole 40 Mg Tab) 40 mg PO DAILY [facility]; Protocol Stop: 11/11/24 09:59 Last Admin: 10/12/24 11:22 Dose: 40 mg Ropinirole HCl (Ropinirole Hcl 1 Mg Tablet) 1 mg PO BID JOEL Stop: 11/11/24 09:18 Last Admin: 10/12/24 19:55 Dose: 1 mg Rosuvastatin Calcium (Rosuvastatin Calcium 10 Mg Tab) 10 mg PO PM JOEL Stop: 11/11/24 20:59 Last Admin: 10/12/24 19:55 Dose: 10 mg Sertraline HCl (Sertraline Hcl 100 Mg Tablet) 100 mg PO DAILY JOEL Stop: 11/11/24 09:18 Last Admin: 10/12/24 11:22 Dose: 100 mg
[2024-10-13] MEDS: POTASSIUM CHLORIDE CRTAB 20 MEQ TABCR PO STA (09:06)
[2024-10-13] MEDS ORDERED: ONDANSETRON 2 MG OD TAB PO PRN (09:33)
[2024-10-13] MEDS ORDERED: ADVANCED PROBIOTIC 625 MG CAPSULE PO SCH (09:45)
--- NOTE | 2024-10-13 09:45 | Discharge Summary ---
Date of Service October 13, 2024 Admission HPI Per Admitting Provider 84-year-old female with past medical history significant for hypertension, chronic diastolic CHF, restless leg syndrome, depression, hyperlipidemia, GERD, presents with unresponsive episode. As per patient yesterday they had Thanksgiving dinner. She cleaned up her whole house. Daughter visited her. Her daughter left around 7 PM she felt tired and weak and went to sleep. She woke up around midnight and surprised that she slept so long. And she felt very nauseous. And she tried to go to bathroom to vomit. Next thing she remembers laying on the floor in the closet. Seems found her unresponsive in the closet and could not wake her up. As per patient she was unresponsive for a few minutes. EMS was called and brought in here. Prior to the episode she was doing okay. Currently having lot of chest pain and epigastric abdominal pain more with movements. While resting the pain is okay. Has mild headache. She thinks she hit on the right side of the maxillary region of the face. No recent fevers. No cough. Says she is always gets short of breath walking short distances. Appetite is okay. Vision is okay. Somewhat hard of hearing. No diarrhea. Somewhat constipated. Micturating okay.Denies any bowel or bladder incontinence during the episode. No biting of the tongue. Currently resting comfortably and hemodynamically stable. Past medical history. As mentioned above. 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 Surgeries. Both hips and knee replacements. Colonoscopy. Social history. No smoking. No alcohol. No drug use. Family history. No family history on file Admission Exam Per Admitting Provider General- Not in distress Head- mild bruise seen on right maxillary region Eyes- PERRL, EOMI. ENT- oropharynx clear Neck- can flex and extend neck, no JVD Lungs- clear to auscultation no wheezing or crackles Heart- regular rate and rhythm; no murmur, no gallop. Abdomen- normal bowel sounds, soft, nontender, no distension. Extremities- no pretibial edema, no erythema seen Neuro- alert, oriented ; PERRL, EOMI; no facial palsy; no dysarthria; can lift up extremities, no pronator drift, co ordination of movements normal, sensations intact Skin- warm & dry Principal Diagnosis nausea, vomiting, unresponsive episode epigastric abdominal pain possible pneumonia noted on CT scan Discharge Exam General- elderly obese F in NAD Head- mild bruise seen on right maxillary region Eyes- PERRL, EOMI. Neck- supple Lungs- clear to auscultation no wheezing or crackles Heart- regular rate and rhythm; no murmur, no gallop. Abdomen- normal bowel sounds, soft, nontender, no distension. Extremities- no pretibial edema, no erythema seen Neuro- alert, oriented ; PERRL, EOMI; no facial palsy; no dysarthria; moves extremities Skin- warm & dry Discharge Data Allergies Allergy/AdvReac Type Severity Reaction Status Date / Time No Known Drug Allergies Allergy Verified 08/08/22 13:05 Consultations 10/12/24 09:19 Consult Cardiology Routine 10/12/24 12:05 Consult Gastroenterology Routine Ordered Studies 10/12/24 02:37 CT abd pelvis IV con only Stat IMPRESSION: 1. Mildly dilated portal vein at the oz-splenic confluence, measuring 1.6 cm. 2. Simple hepatic and right renal cysts. 3. Small sliding hiatus hernia. CT angio chest PE protocol Stat IMPRESSION: 1. No evidence of pulmonary embolism. 2. Centrilobular nodules in lateral basal segment of right lower lobe with some showing tree-in-bud appearance, likely representing infective etiology. 10/12/24 06:22 CT head/brain wo con Urgent IMPRESSION: 1. No evidence of acute skull vault fracture or acute intracranial hemorrhage. 2. Chronic microvascular ischemic changes. 3. Senile brain atrophic changes. Hospital Course (1) Unresponsive episode: 84-year-old female with past medical history significant for hypertension, chronic diastolic CHF, restless leg syndrome, depression, hyperlipidemia, GERD, presents with unresponsive episode. As per patient yesterday they had Thanksgiving dinner. She cleaned up her whole house. Daughter visited her. Her daughter left around 7 PM she felt tired and weak and went to sleep. She woke up around midnight and surprised that she slept so long. And she felt very nauseous. And she tried to go to bathroom to vomit. Next thing she remembers laying on the floor in the closet. Seems found her unresponsive in the closet and could not wake her up. As per patient she was unresponsive for a few minutes. EMS was called and brought in here. Prior to the episode she was doing okay. Currently having lot of chest pain and epigastric abdominal pain more with movements. While resting the pain is okay. Has mild headache. She thinks she hit on the right side of the maxillary region of the face. No recent fevers. No cough. Says she is always gets short of breath walking short distances. Appetite is okay. Vision is okay. Somewhat hard of hearing. No diarrhea. Somewhat constipated. Micturating okay.Denies any bowel or bladder incontinence during the episode. No biting of the tongue. Currently resting comfortably and hemodynamically stable. Unresponsive episode Currently alert and oriented Labs unremarkable, UA negative EKG and 2 sets of troponin okay CT head no acute findings obtained serial cardiac enzymes and obtained echo Telemetry Gentle fluids Orthostatics Cardiology consulted for further recommendations - Patient with reproducible chest wall pain on exam. Although she was reportedly hypotensive on the arrival of EMS, blood pressure has been high in the hospital, with initial reading of 175/103 when she arrived, most recent measurement 168/89. She is not on any AV troy blockers as an outpatient. Outpatient medications include losartan 50 mg daily and furosemide 20 mg daily. Question if episode was vasovagal in etiology. Recommend a 2-week Zio patch monitor to be performed at discharge. Close monitor Possible pneumonia on CAT scan Empiric Rocephin and Doxy -> switch to PO abx on DC Monitor Chest pain and abdominal pain More with movements Mostly musculoskeletal CTA chest unremarkable except for possible pneumonia CT and abdomen pelvis unremarkable except for mildly dilated portal vein Nausea, vomiting, epigastric pain - ongoing for 1-2 months - started IV PPI, pt seems improved - Consulted GI - discussing need for EGD either inpt or outpt - they would prefer to be discharged and have EGD done as outpt w/ [facility]. 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 as per patient Chronic diastolic CHF Getting gentle fluids History of lower EXTR edema Holding Lasix Monitor for volume overload Hypertension On losartan Holding furosemide Will monitor Restless leg syndrome On ropinirole GERD Omeprazole -> switch to pantoprazole 40 mg BID on DC -> follow up with GI Hyperlipidemia On statin and aspirin Total Time Total Time Spent Total Time Spent (In Minutes): 40 Discharge Plan Discharge Items Patient Disposition: Home - Self-Care Reason For Visit: UNRESPONSIVE EPISODE Discharge Diagnosis: nausea, vomiting, unresponsive episode epigastric abdominal pain possible pneumonia noted on CT scan Activity: Per Instructions section Non-emergency contact: Primary Care Provider and Vocational Technical Education Director Call non-emergency contact if: you have any medication questions and your symptoms worsen Follow-up/Referrals: Chloe Chase MD [Primary Care Provider] - Diet: Other - See Diet Comment Addtl Attending Provider Instructions: 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 Take pantoprazole twice a day until further discussed with your stamping die maker. Avoid caffeine, alcohol, and sour/ acidic juices such as orange, cranberry, apple juice etc. Finish antibiotic treatment for possible pneumonia - cefuroxime and doxycycline - as prescribed. You will need to be followed by cardiology - for 2 week zio patch monitor. Pending Studies at Discharge: No Stand-Alone Forms: My [facility] [email or web address], Smoking Cessation Medications and DC Order Prescriptions: New pantoprazole 40 mg Tablet,Delayed Release (Dr/Ec) 40 mg PO BID Qty: 60 0RF ondansetron 4 mg Tablet,Disintegrating 2 mg PO Q8H PRN (Reason: nausea and vomiting) Qty: 10 0RF doxycycline hyclate 100 mg Capsule 100 mg PO BID 3 Days Qty: 6 0RF cefuroxime axetil 500 mg tablet 500 mg PO BID 3 Days Qty: 6 0RF Advanced Probiotic 625 mg (10 billion cell) Capsule 1 cap PO DAILY Qty: 7 0RF Continued memantine 5 mg tablet 5 mg PO QAM sertraline 100 mg tablet 100 mg PO DAILY rosuvastatin 5 mg tablet 10 mg PO PM aspirin 81 mg tablet,delayed release (DR/EC) 81 mg PO PM losartan 50 mg tablet 50 mg PO DAILY amoxicillin 500 mg tablet 500 mg PO BID ropinirole 2 mg tablet 1 mg PO BID albuterol sulfate 90 mcg/actuation HFA aerosol inhaler 1 mcg INHALATION 4XD PRN (Reason: Wheezing) furosemide 20 mg tablet 20 mg PO DAILY Discontinued omeprazole 20 mg tablet,delayed release (DR/EC) 20 mg PO DAILY Discharge Orders: Discharge Order (Routine); Ordered 10/13/24 Ordered By: Benny Lawton Admission Data Admit Date/Time: 10/12/24 06:22 Attending Provider: Benny Lawton Admit Provider: Tarik Costello Primary Care Provider: Chloe Chase Other Providers: Eduardo Paz; Mark Coombs; Christian Monterroso; Atiya Burns; Soraida Levi; Kaya Yip; Marcelle Banda; Angelina Abernathy; Kendell Chua; Diego Fairchild; Francis Garner; Cecelia Cox; Oksana Patton; Miranda Dugan; Vanessa Vivar; Birdie Weaver; Kaushik Lemra; Jos Rivas; Leydi Francisco; Vinay Rendon Jr; Adin Sanders.; Osman Zimmerman; Tee Rai; Esvin More; Elaina Forte; Varun Corrales I; Anastasia Carlin Other Interventions: Discharge Summary Assessment (RN) Last Done: 10/13/24 09:56
--- NOTE | 2024-10-13 09:47 | Gastroenterology Progress Note ---
Date of Service October 13, 2024 Assessment & Plan (1) Nausea and vomiting: Plan: 84 hypertension, chronic diastolic CHF, restless leg syndrome, depression, hyperlipidemia, GERD admitted w/ an unresponsive episode undergoing cardiology evaluation. GI was asked to evaluate for nausea/vomiting. We are happy to provide endoscopic evaluation Sunday pending the cardiac workup. Please keep NPO aftermidnight. Continue conservative measures for now w/ PPI therapy and Zofran as needed. Recommend she is stated on a bowel regimen w/ Miralax 1 capful once daily. May use dulcolax PRN if no BM in 48 hours. We appreciate assistance in the management of any serological abnormality and corrections to include: hemoglobin >7, INR <2, platelets >50,000, potassium levels >3.5 but <5.3, and sodium levels within 5 points of the reference range prior to endoscopic evaluation. I spent a total of 40 minutes on the date of service in review of patient's record, and previously obtained information in person and appropriate medical visit, discussion and education of plan, with patient and/or caregiver, placing orders for tests/referral/procedures as medically necessary and documentation of pertinent clinical information in patient's medical records for their visit today. Admission and Anticipated Discharge Date Admission Date: October 12, 2024 Supervising Physician Co-Signing Physician Notes Patient left before she could be seen and evaluated by me Subjective Pt was seen and evaluated, chart reviewed. Denies any nausea/vomiting today. No abd pain today. She does not the abd pain, nausea/vomiting occur spontaneously. Does not seen to be associated with oral intake. Denies GERD or dysphagia to me. Endorses chronic constipation. CTAP 2023: The gall bladder appears unremarkable. The spleen, pancreas, and adrenal glands are unremarkable. Small sliding hiatus hernia noted. Redundant sigmoid colon noted. No focal or diffuse bowel wall thickening or evidence of bowel obstruction is identified. Colonoscopy 2016: - Non-thrombosed external hemorrhoids found on perianal exam. - The examined portion of the ileum was normal. - The entire examined colon is normal. - The distal rectum and anal verge are normal on retroflexion view. - No specimens collected. Review of Systems Review of Systems: All other findings negative except as noted in HPI. Physical Exam Constitutional: WD/WN, vitals as above Respiratory: normal respiratory effort, lungs clear to auscultation Cardiovascular: Rate/Rhythm: regular rate and regular rhythm Gastrointestinal (Abdomen): normal bowel sounds, soft, nontender, no hepatosplenomegaly Skin: no rashes, warm and dry Results & Data Results & Data Vital Signs (Past 12 Hours) Vital Signs Temp Pulse Pulse Resp BP Pulse Ox O2 Del Method 10/13/24 08:07 36.9 C 65 18 159/88 H 95 Room Air 10/13/24 07:07 65 10/13/24 03:18 36.8 C 88 19 162/64 H 98 Room Air 10/12/24 23:47 70 10/12/24 23:17 76 18 158/90 H 93 Room Air 10/12/24 22:10 71 155/94 H 10/12/24 21:50 90 192/119 H Laboratory Results 10/13/24 10/12/24 10/12/24 Range/Units 05:59 16:11 10:45 WBC 5.50 (4.8-10.8) K/ul RBC 4.03 L (4.20-5.40) M/uL Hgb 12.5 (12.0-16.0) g/dl Hct 36.4 L (37.0-47.0) % MCV 90.3 (80.0-100.0) fL MCH 31.0 (25.0-34.0) pg MCHC 34.3 (32.0-36.0) g/dL RDW Std Deviation 42.3 (36.4-46.3) fL RDW Coeff of Lida 12.7 (11.5-14.5) % Plt Count 212 (130-400) K/uL MPV 9.8 (9.4-12.4) fL Sodium 136 (136-145) mmol/L Potassium 3.5 (3.5-5.1) mmol/L Chloride 101 (98-107) mmol/L Carbon Dioxide 29 (21-32) mmol/L Anion Gap 6 (3-11) BUN 9 (6-23) mg/dl Creatinine 0.73 (0.6-1.2) mg/dl Est Cr Clr Drug Dosing 57.8 ml/min eGFR 82.06 BUN/Creatinine Ratio 12.3 (10-20) Glucose 107 H (70-99(Fasting)) mg/dl Calcium 8.8 (8.6-10.3) mg/dl Phosphorus 2.7 (2.5-4.9) mg/dl Magnesium 1.9 (1.7-2.4) mg/dl Troponin I High Sens 6.2 5.2 (0-14) pg/ml PG Care Time/CCT Total # of Minutes Spent Total Time Spent with Patient: Total time spent is greater than 50% in coordination of care (as documented) at patient's floor/unit and/or counseling patient: Coding Level of Care Code 35773 SUB INP/OBS CARE 2/35MIN Diagnoses Nausea and vomiting R11.2
--- NOTE | 2024-10-13 15:52 | Electrocardiogram Report ---
Test Reason : Blood Pressure : */* mmHG Vent. Rate : 72 BPM Atrial Rate : 72 BPM P-R Int : 252 ms QRS Dur : 86 ms QT Int : 442 ms P-R-T Axes : 60 63 59 degrees QTcB Int : 483 ms Sinus rhythm with 1st degree A-V block Nonspecific ST and T wave abnormality Abnormal ECG No previous ECGs available Confirmed by Clint Calhoun ([id number]) on 10/13/2024 3:52:29 PM Referred By: REFERRED SELF Confirmed By: Clint Calhoun
--- NOTE | 2024-10-13 16:00 | Electrocardiogram Report ---
Test Reason : Blood Pressure : */* mmHG Vent. Rate : 61 BPM Atrial Rate : 61 BPM P-R Int : 226 ms QRS Dur : 94 ms QT Int : 464 ms P-R-T Axes : 47 78 47 degrees QTcB Int : 467 ms Sinus rhythm with 1st degree A-V block Otherwise normal ECG When compared with ECG of 12-Oct-2024 02:16, (unconfirmed) Nonspecific T wave abnormality no longer evident in Inferior leads Nonspecific T wave abnormality no longer evident in Lateral leads Confirmed by Clint Calhoun ([id number]) on 10/13/2024 3:59:49 PM Referred By: REFERRED SELF Confirmed By: Clint Calhoun
== END 2024-10-13 10:45 | disposition home or self-care (01) ==
LOC: ED 02:08 → INTOOBSV 06:22 → 2S 06:22